=== PATIENT | male | born 1960 | race Caucasian/White ===

== ENCOUNTER 2019-02-13 21:06 | Emergency (ER) | payer MEDICAID, SELFPAY ==
[2019-02-13 21:09] VITALS: BP 151/78; PULSE 79; RESP 18; TEMP 37; O2SAT 95
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
[2019-02-13 22:11] LABS: Abs Immature Grans 0.03 k/cumm (0.0-0.09); Absolute Basophil Count 0.01 k/cumm (0.0-0.2); Basophils % 0.1; HCT 43.3 % (40.0-50.0); HGB 14.5 g/dL (13.5-17.5); Immature Grans % 0.3; Lymphocytes % 13.5; Mean Corp. HGB Concentration 33.5 g/dL (32.0-36.0); Mean Corpuscular Hemoglobin 29.4 pg (27.0-33.0); Mean Corpuscular Volume 87.8 fL (80-95); Monocytes % 7.6; Neutrophils % 78.5; Platelet Count 260 x1000/uL (130-400); RBC 4.93 m/cumm (4.50-6.00); RBC Distribution Width 12.9 % (11.8-14.1); White Blood Cell Count 11.82 k/cumm (4.4-10.8)
[2019-02-13] MEDS: Lactated Ringers 1,000 ML 250 ML IV (22:12)
[2019-02-13 22:15] LABS: Absolute Neutrophil Count 9.28 k/cumm (1.2-6.7)
[2019-02-13 22:28] LABS: Bilirubin Negative (Negative); Blood Trace-intact (Negative); Clarity Clear (Clear); Glucose Negative (Negative); Ketones Trace mg/dL (Negative); Leukocyte Esterase Negative (Negative); Nitrite Negative (Negative); Specific Gravity 1.025 (1.005-1.025); Urobilinogen 0.2 EU/dL (Up TO 0.2)
[2019-02-13 22:32] LABS: ALT 20 U/L (12-78); AST 24 U/L (15-37); Albumin 3.8 g/dL (3.4-5.0); Alkaline Phosphatase 74 U/L (46-116); Anion Gap 9.4 mmol/L (3-11); BUN 19 mg/dL (7-18); Bilirubin, Total 0.3 mg/dL (0.2-1.0); CO2 24.6 mmol/L (21.0-32.0); Calcium 9.4 mg/dL (8.5-10.1); Chloride 107 mmol/L (98-107); Glucose 119 mg/dL (70-100); Lipase 194 U/L (73-393); Potassium 3.6 mmol/L (3.5-5.1); Sodium 141 mmol/L (136-145); Total Protein 6.8 g/dL (6.4-8.2)
[2019-02-13 22:32] LABS: Bacteria Negative HPF (Negative); C & S Indicated? No; Casts Negative LPF (Negative); Crystals Rare Uric Acid HPF (Negative); Epithelial Cells Negative HPF (Negative); Mucus Negative (Negative); Other Cells Negative (Negative); RBC Negative (0-2)
--- NOTE | 2019-02-13 22:54 | DI.RAD_ITS ---
SYMPTOM/DIAGNOSIS: TRAUMA RIGHT SHOULDER: There is a fracture at the anterior inferior aspect of the glenoid. There is separation of a few mm. There is also a declivity in the lateral aspect of the humeral head which could represent a Hill Sachs lesion. The humeral head appears normally positioned. There are degenerative changes of the A-C joint which is not widened. No pneumothorax or rib fracture is seen. IMPRESSION: Large Bankart lesion of the anterior inferior glenoid. 

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
[2019-02-13 23:09] VITALS: BP 132/80; PULSE 80; RESP 16; O2SAT 95
[2019-02-13] MEDS: Omnipaque 350 MG/ML 100 ML BTL IJ (23:10)
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
[2019-02-13] MEDS: Ketorolac 15 MG/ML VIAL IVP (23:44)
[2019-02-14 00:02] VITALS: BP 146/91; PULSE 77; RESP 18; O2SAT 94
== END 2019-02-14 00:15 | disposition home or self-care (01) ==
PROVIDERS: Emergency Provider Emergency Medicine; PCP Internal Medicine
DX: S41.141A Puncture wound with foreign body of right upper arm, initial encounter (principal); S20.412A Abrasion of left back wall of thorax, initial encounter; S20.212A Contusion of left front wall of thorax, initial encounter; S80.812A Abrasion, left lower leg, initial encounter; V84.5XXA Driver of special agricultural vehicle injured in nontraffic accident, initial encounter; Y92.79 Other farm location as the place of occurrence of the external cause
CPT/HCPCS: 36415; 74177; 80053; 83690; 96361; 96374; 99285; 71260; 73030; 81003; 81015; 85025; J1885; J3490

== ENCOUNTER 2019-02-20 00:59 | Outpatient (CLI) | payer MEDICAID, SELFPAY ==
--- NOTE | 2019-02-20 14:42 | DI.MRI_ITS ---
SYMPTOMS/DIAGNOSIS: TRAUMATIC DISLOCATION, DISPLACED FRACTURE, GLENOID CAVITY OF SCAPULA, RIGHT SHOULDER, S42.141A, M25.311, EVALUATE FOR ROTATOR CUFF INVOLVEMENT RIGHT SHOULDER MRI: MRI examination of the shoulder was performed according to the usual protocol. There is an osteochondral fracture of the anterior inferior aspect of the glenoid with displacement of roughly 8 mm. There is also a nondisplaced fracture of the greater tuberosity of the humerus adjacent to infraspinatus and supraspinatus tendon attachments. No discrete rotator cuff tear seen. Mildly abnormal signal noted in the distal supraspinatus and subscapularis tendons consistent with tendinosis or direct trauma. Subscapularis tendon appears intact. There is a large joint effusion. Biceps tendon appears normally positioned. CONCLUSION: Bony Bankart lesion and nondisplaced greater tuberosity fracture of the humerus. No evidence of acute rotator cuff tear.
== END 2019-02-20 01:19 ==
PROVIDERS: PCP Internal Medicine; Visit Provider Student in an Organized Health Care Education/Training Program
DX: M25.311 Other instability, right shoulder (principal); S42.251A Displaced fracture of greater tuberosity of right humerus, initial encounter for closed fracture; M75.81 Other shoulder lesions, right shoulder
CPT/HCPCS: 73221

== ENCOUNTER 2019-02-22 10:43 | Day surgery (SDC) | payer MEDICAID, SELFPAY ==
[2019-02-22] VITALS (7 sets, daily range): BP systolic 95–147; BP diastolic 58–88; PULSE 63–69; RESP 14–19; TEMP 36.2–36.6; O2SAT 94–98
[2019-02-22] MEDS: Lactated Ringers 1,000 ML 80 ML IV (11:18)
--- NOTE | 2019-02-22 11:35 | DI.RAD_ITS ---
SYMPTOM/DIAGNOSIS: DISPLACED FX GLENOID CAVITY RT SCAPULA C ARM RIGHT SHOULDER: Fluoroscopy Time: 11.6 seconds Fluoroscopy was utilized by Dr. Persaud during evaluation of the right scapular fracture. Please refer to the procedure report for complete details.
[2019-02-22] MEDS: Bupivacaine LIPOSOME/PF 133 MG/10 ML VIAL IJ (11:57)
[2019-02-22] MEDS: Bupivacaine 0.5% Pres-Free 30 ML VIAL (11:57)
[2019-02-22] MEDS: ceFAZolin 2 GM/50 ML BAG IVPB (12:02)
--- NOTE | 2019-02-22 16:14 | PDOC.DSDIS_ITS ---
Discharge Plan Disposition Patient Disposition: HOME Condition: Good Discharge Details Reason For Visit: R Glenoid Fracture and RTC Tear Attending Provider: Owen Persaud Primary Care Provider: Graham Arita Home Meds and New Rx's Prescriptions: New acetaminophen 500 mg tablet 1,000 mg PO Q8H PRN (Reason: pain) Qty: 90 RF: 3 ibuprofen 600 mg tablet 600 mg PO TID PRNQty: 90 RF: 3 oxycodone 5 mg tablet 5 mg PO Q4H Qty: 12 RF: 0 Continued aspirin [Aspir-81] 81 MG tablet,delayed release (DR/EC) 81 mg PO DAILY RF: 0 ibuprofen 600 mg Tablet 600 mg PO PRN PRNRF: 0 Discharge Instructions Additional Instructions: If you have any questions or issues, you may reach out to Dr. Persaud at [phone] Stand Alone Forms: Anes.Nerve Block Instructions, Hung Montilla w/RCR, DSU Post op Instructions, Aaron Forte (DSU) Referrals: Owen Persaud MD [ [facility] STAFF PHYSICIAN] - Equipment/Supplies: Bolster Pillow and Sling Activity:: Stay in Sling Remove Dressings/Wound Care:: 72 hours Shower/Bathe:: 72 hours Discharge Orders Discharge Orders: Discharge Order (Routine); Ordered 02/22/19 Ordered By: Owen Persaud DS: Diagnosis Discharge Diagnosis (1) Instability of right shoulder joint: Status: Acute (2) Displaced fracture of glenoid cavity of right scapula: Status: Acute (3) Right rotator cuff tear: Status: Acute
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
== END 2019-02-22 18:19 | disposition home or self-care (01) ==
PROVIDERS: PCP Internal Medicine; Visit Provider Student in an Organized Health Care Education/Training Program
PROC: (CPT 29827; principal; 2019-02-22 12:00)
PROC: (CPT 29806; 2019-02-22 12:00)
DX: S42.141A Displaced fracture of glenoid cavity of scapula, right shoulder, initial encounter for closed fracture (principal); S46.011A Strain of muscle(s) and tendon(s) of the rotator cuff of right shoulder, initial encounter; M25.311 Other instability, right shoulder; G89.18 Other acute postprocedural pain; V84.5XXA Driver of special agricultural vehicle injured in nontraffic accident, initial encounter
CPT/HCPCS: 29806; 29827; 29823; 76942; 73030; J0690; L3670

== ENCOUNTER 2019-03-06 10:49 | Outpatient (CLI) | payer MEDICAID, SELFPAY ==
--- NOTE | 2019-03-06 09:10 | DI.RAD_ITS ---
SYMPTOM/DIAGNOSIS: 1ST POST OP GLENOID FX RIGHT SHOULDER: Three views. Comparison 02/13/19 There is again seen a comminuted fracture of the anterior inferior glenoid. There has been slight displacement of the fracture fragments compared to 02/13/19 No new fractures or dislocations are present. There are tiny calcifications adjacent to the greater tuberosity which appears stable and may reflect calcific tendinitis.
== END 2019-03-06 11:09 ==
PROVIDERS: Visit Provider Student in an Organized Health Care Education/Training Program
DX: S42.141A Displaced fracture of glenoid cavity of scapula, right shoulder, initial encounter for closed fracture (principal)
CPT/HCPCS: 73030

== ENCOUNTER 2019-04-03 14:44 | Outpatient (CLI) | payer MEDICAID, SELFPAY ==
--- NOTE | 2019-04-03 14:13 | DI.RAD_ITS ---
SYMPTOMS/DIAGNOSIS: F/U FX RIGHT SHOULDER: Four views were obtained. Previously noted glenoid fracture is again noted. No gross interval change in alignment of the fracture fragments in comparison with examination of March 06.
== END 2019-04-03 15:04 ==
PROVIDERS: PCP Internal Medicine; Visit Provider Student in an Organized Health Care Education/Training Program
DX: S42.141D Displaced fracture of glenoid cavity of scapula, right shoulder, subsequent encounter for fracture with routine healing (principal)
CPT/HCPCS: 73030

== ENCOUNTER 2019-09-30 19:19 | Outpatient (REF) | payer MEDICAID, SELFPAY ==
[2019-09-30 20:58] LABS: Calculated LDL 173 mg/dL (<100); Cholesterol 264 mg/dL (<200); HDL Cholesterol 38 mg/dL (40-60); Triglyceride 269 mg/dL (<150)
== END 2019-09-30 19:39 ==
LOC: NCHCN 19:19
PROVIDERS: PCP Internal Medicine; Visit Provider Internal Medicine
DX: E78.5 Hyperlipidemia, unspecified (principal); Z00.00 Encounter for general adult medical examination without abnormal findings
CPT/HCPCS: 80061

== ENCOUNTER 2020-02-04 08:02 | Outpatient (CLI) | payer MEDICAID, SELFPAY ==
[2020-02-07 00:17] LABS: SARS-CoV-2 RNA Undetected (Undetected); SARS-CoV-2 Specimen Source Nasopharynx
== END 2020-02-04 08:22 ==
PROVIDERS: PCP Internal Medicine; Visit Provider Internal Medicine
DX: Z11.59 Encounter for screening for other viral diseases (principal)
CPT/HCPCS: U0003

== ENCOUNTER 2020-05-19 18:18 | Outpatient (REF) | payer MEDICAID, SELFPAY ==
[2020-05-24 11:43] LABS: Patient Race White; SARS-CoV-2 RNA Undetected (Undetected); SARS-CoV-2 Specimen Source Nasal
== END 2020-05-19 18:38 ==
LOC: NCHCN 18:18
PROVIDERS: PCP Internal Medicine; Visit Provider Internal Medicine
DX: Z20.828 Contact with and (suspected) exposure to other viral communicable diseases (principal)
CPT/HCPCS: U0003

== ENCOUNTER 2021-01-22 16:43 | Outpatient (REF) | payer MEDICAID, SELFPAY ==
[2021-01-25 09:36] LABS: PSA, Screening 0.3 ng/mL (0.0-4.5)
== END 2021-01-22 16:44 | disposition home or self-care (01) ==
LOC: NCHCN 16:43
PROVIDERS: PCP Internal Medicine; Visit Provider Internal Medicine
DX: Z12.5 Encounter for screening for malignant neoplasm of prostate (principal)
CPT/HCPCS: 84153

== ENCOUNTER → 2022-02-16 01:26 | Outpatient (CLI) | payer MEDICAID, SELFPAY ==
--- NOTE | 2022-02-16 | DI.RAD_ITS ---
Exam(s) XR CHEST 2V PA LATERAL EXAM: XR CHEST 2V PA LATERAL CLINICAL HISTORY: WHEEZING, R06.2 TECHNIQUE: 2D digital imaging was performed. COMPARISON: CT CT CHEST/ABD/PEL W from 02/13/2019 FINDINGS: MEDIASTINUM: Normal. HEART: Normal. PULMONARY VASCULATURE: Normal. LUNGS: Clear. PLEURAL SPACE: No pleural effusion or pneumothorax. BONE:Unremarkable for age. IMPRESSION: No acute abnormality. DATA REPOSITORY: RADIATION DOSE DELIVERED:
== END ==
PROVIDERS: PCP Internal Medicine; Visit Provider Internal Medicine
DX: R06.2 Wheezing (principal)
CPT/HCPCS: 71046

== ENCOUNTER 2022-04-07 18:15 | Outpatient (REF) | payer MEDICAID, SELFPAY ==
[2022-04-09 22:35] LABS: HSV 1 DNA Result Negative (Negative); HSV 2 DNA Result Negative (Negative)
== END 2022-04-07 18:16 | disposition home or self-care (01) ==
LOC: NCHCN 18:15
PROVIDERS: PCP Internal Medicine; Visit Provider Nurse Practitioner Family
DX: R21 Rash and other nonspecific skin eruption (principal)
CPT/HCPCS: 87529

== ENCOUNTER 2022-04-19 17:37 | Outpatient (REF) | payer MEDICAID, SELFPAY ==
[2022-04-20 11:30] LABS: HSV Type 1 Ab, IgG Negative (Negative); HSV Type 2 Ab, IgG Negative (Negative)
== END 2022-04-19 17:38 | disposition home or self-care (01) ==
LOC: NCHCN 17:37
PROVIDERS: PCP Internal Medicine; Visit Provider Nurse Practitioner Family
DX: R21 Rash and other nonspecific skin eruption (principal)
CPT/HCPCS: 86695; 86696

== ENCOUNTER 2022-09-17 15:11 | Emergency (ER) | payer MEDICAID, SELFPAY ==
[2022-09-17] VITALS (19 sets, daily range): BP systolic 113–132; BP diastolic 71–98; PULSE 71–111; RESP 10–22; TEMP 37; O2SAT 99
--- NOTE | 2022-09-17 15:15 | DI.RAD_ITS ---
Exam(s) XR PORTABLE CHEST AP EXAM: XR PORTABLE CHEST AP CLINICAL HISTORY: dyspnea TECHNIQUE: 2D digital imaging was performed of the chest. One image was obtained. An AP view was ob tained. COMPARISON: CR XR CHEST 2V PA LATERAL from 02/16/2022 FINDINGS: MEDIASTINUM: Normal. HEART: Normal. PULMONARY VASCULATURE: Normal. LUNGS: Clear. PLEURAL SPACE: No pleural effusion or pneumothorax. BONE:Within normal limits for the patient's age. OTHER FINDINGS:Normal. IMPRESSION: No acute pulmonary findings. DATA REPOSITORY: RADIATION DOSE DELIVERED:
--- NOTE | 2022-09-17 15:15 | RT.EKG_ITS ---
APPROVED REPORT Exam: Resting ECG Reason for Exam: rapid afib Patient Location: E HR:102 bpm ECG Measurements Heart Rate 102 AXIS ND [id number] P [id number] QRSd 96 QRS 2 QT 354 T 26 QTc 462 Conclusion Atrial fibrillation...V-rate 78-135, irreg A-activity
--- NOTE | 2022-09-17 15:27 | ED.GENADUL_ITS ---
Discharge Plan Disposition Patient Disposition: Home Condition: Stable Discharge Details Clinical Impression: Atrial fibrillation Primary Care Provider: Graham Arita ED Provider: Krishna Salcedo Home Meds and New Rx's Prescriptions: New Kapspargo Sprinkle 50 mg capsule,sprinkle,ER 24hr 50 mg PO DAILY Qty: 10 0RF Continued aspirin [Aspir-81] 81 MG tablet,delayed release (DR/EC) 81 mg PO DAILY ibuprofen 600 mg Tablet 600 mg PO PRN PRN acetaminophen 500 mg tablet 1,000 mg PO Q8H PRN (Reason: pain) Qty: 90 3RF ibuprofen 600 mg tablet 600 mg PO TID PRNQty: 90 3RF Discharge Instructions Instructions: A-fib (Atrial Fibrillation) (ED) Additional Instructions: Your blood work and xray did not show concerning findings and your heart rate was not elevated while here follow up with your primary care provider within 1 week if you feel more ill, have chest pain or feel your heart rate at rest is consistently over 110 return to the emergency department Medical Decision Making 61 yo male who has a history of paroxysmal afib on aspirin and no other medications, comes in with feeling his heart beating irregularly today and feeling short of breath with exertion. Denies any fevers, chills, chest pain, n/v. States he felt well all day yesterday and had no symptoms. He arrives stable, is in afib with rates ranging from 90-110. Clear lungs, no murmurs, no leg swelling, no calf tenderness, no jvd. Suspect his symptoms are due to his afib, will evaluate for nstemi with troponin, obtain cbc and cmp, and give one dose of IV metoprolol and reassess. He has no hypoxia, no pleuritic chest pain and no evidence of dvt on exam so doubt PE pt stable, HR in the 80's, 100% [id number], labs unremarkable and symptoms have been present for over 3 hours so do not feel delta troponin indicated. Discussed with pt, he has a [id number] of 0 so doesn't require anticoagulation. Will start him on metoprolol until he can see his pcp for reassessment. Return precautions given Differential Diagnosis Differential Diagnosis: afib, electrolyte abnormality Medical Records Medical records reviewed: Yes I reviewed the patient's medical records. ECG Data Attestation: I personally reviewed and interpreted this ECG (s) as follows: Prior ECG tracings: not available for review Interpretation: afib, rate of 102, qtc 462, no acute ischemic findings HPI General Mode of arrival: ambulatory . Date/Time Provider Initiated Documentation: 09/17/22 15:12 . Limitations to Documentation: no limitations . Information obtained by: patient . History of Present Illness 61 year old M presents to the emergency department with the chief complaint of shortness of breath, described as moderate, Patient started experiencing this day(s) (1) and it has been constant. No relieving factors improve symptom(s), No exacerbating factors reported . Patient notes other (lightheaded). Patient did receive the following treatments prior to arrival, none Related Data Home Medications Medication Instructions Recorded Confirmed aspirin 81 mg tablet,delayed 81 mg PO DAILY 01/10/14 07/08/19 release (Aspir-) acetaminophen 500 mg tablet 1,000 mg PO Q8H PRN pain #90 tabs 02/22/19 07/08/19 ibuprofen 600 mg tablet 600 mg PO PRN PRN 02/22/19 07/08/19 ibuprofen 600 mg tablet 600 mg PO TID PRN #90 tabs 02/22/19 07/08/19 metoprolol succinate 50 mg capsule 50 mg PO DAILY #10 caps 09/17/22 sprinkle, ext. release 24 hr (Kapspargo Sprinkle) Previous Rx's Medication Instructions Recorded acetaminophen 500 mg tablet 1,000 mg PO Q8H PRN pain #90 tabs 02/22/19 ibuprofen 600 mg tablet 600 mg PO TID PRN #90 tabs 02/22/19 metoprolol succinate 50 mg capsule 50 mg PO DAILY #10 caps 09/17/22 sprinkle, ext. release 24 hr (Kapspargo Sprinkle) Allergies Allergy/AdvReac Type Severity Reaction Status Date / Time No Known Allergies Allergy Unverified 07/08/19 08:18 General Stated Complaint: RespSymp YUDELKA: 3 Review of Systems All systems reviewed & are unremarkable except as noted in HPI and below Constitutional Constitutional: Denies chills, Denies fever(s) and Denies weakness Cardiovascular Cardiovascular: Denies chest pain Respiratory Respiratory: Denies cough Gastrointestinal Gastrointestinal: Denies abdominal pain, Denies nausea and Denies vomiting Musculoskeletal Musculoskeletal: Denies joint swelling Integumentary/Breasts Skin/Breast: Denies rash Neurologic Neurologic: Denies weakness PFSH All Active Problems (Updated 09/17/22 @ 16:53 by Krishna Salcedo MD) Atrial fibrillation (Chronic) Sleep apnea (Acute) Screening for colon cancer (Acute) Instability of right shoulder joint (Acute) S/P bony Bankart stabilization procedure on 02/22/2019. 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 ARITA FOR HEART WORK UP Skin nodule Ulnar nerve entrapment syndrome Surgical History (Updated 06/14/22 @ 15:15 by Analilia Andre RN) H/O knee surgery History of colonoscopy (~2011) Social History Smoking/Tobacco Use Status: Never Smoking risk assessment performed?: Yes Alcohol Intake: current Alcohol Intake frequency: 0-2 drinks per day Alcohol type: beer Drug use: Rarely Substance use type: marijuana Current gender identity: male Do you feel safe at home: Yes Do you feel safe in your relationship?: Yes Additional Social history: pt is not alone; interacts well with significant other. Exam Const General: no acute distress Orientation: alert HENMT Head: normal to inspection Ears: external ears normal General nose exam: external nose normal Mouth: moist mucous membranes Eyes General: appearance normal, both eyes and all related structures Neck Neck: normal visual inspection Resp Effort & Inspection: normal respiratory effort and able to speak in complete sentences Auscultation: clear to auscultation bilaterally Cardio Jugular venous pressure: no JVD Heart Sounds: no murmurs Skin General skin exam: no rashes or lesions noted Neuro General: patient alert and patient oriented x3 Extrem General: normal to inspection Psych Mental Status: mental status grossly normal Course Vital Signs Vital signs: Vital Signs Temperature 37 C 09/17/22 15:17 Pulse 84 09/17/22 15:17 Respiratory Rate 18 09/17/22 15:17 Blood Pressure 126/81 09/17/22 15:17 Pulse Oximetry 99 09/17/22 15:17 Temperature 37 C 09/17/22 15:17 Temperature Source Temporal Artery Scan 09/17/22 15:17 Pulse 84 09/17/22 15:17 Respiratory Rate 18 09/17/22 15:17 Blood Pressure 126/81 09/17/22 15:17 Blood Pressure Position Sitting 09/17/22 15:17 Pulse Oximetry 99 09/17/22 15:17 Oxygen Delivery Method Room Air 09/17/22 15:17 Oxygen Flow Rate 0 09/17/22 15:17
[2022-09-17 15:42] LABS: Abs Immature Grans 0.02 10^3/uL (0.0-0.06); Absolute Basophil Count 0.03 10^3/uL (0.0-0.2); Absolute Eosinophil Count 0.11 10^3/uL (0.0-0.7); Absolute Lymphocyte Count 2.16 10^3/uL (1.2-3.4); Absolute Monocyte Count 0.55 10^3/uL (0.1-0.8); Absolute Neutrophil Count 4.72 10^3/uL (1.2-6.7); Basophils % 0.4; Eosinophils % 1.4; HCT 48.2 % (40.0-50.0); HGB 15.7 g/dL (13.5-17.5); Immature Grans % 0.3; Lymphocytes % 28.5; MCH 29.1 pg (27.0-33.0); MCHC 32.6 % (32.0-36.0); MCV 89 fL (80-95); MPV 9.4 fL (8.0-11.0); Monocytes % 7.2; Neutrophils % 62.2; Platelet Count 262 10^3/uL (130-400); RDW 12.4 % (11.8-14.1); RDW-SD 40.9 fL; WBC 7.59 10^3/uL (4.4-10.8)
[2022-09-17] MEDS: Metoprolol 5 MG/5 ML VIAL IVP (15:43)
[2022-09-17] MEDS: Normal Saline 1,000 ML 1000 ML IV (15:43)
[2022-09-17 15:56] LABS: PTT Activated 25.5 sec (21.0-27.5); Prothrombin Time 10.1 sec (9.3-11.0)
[2022-09-17 16:00] LABS: ALT 26 U/L (16-63); AST 21 U/L (15-37); Albumin 3.7 g/dL (3.4-5.0); Alkaline Phosphatase 83 U/L (46-116); Anion Gap 6.9 mmol/L (3-11); BUN 17 mg/dL (7-18); Bilirubin, Total 0.4 mg/dL (0.2-1.0); CO2 30.1 mmol/L (21.0-32.0); CREATININE 0.9 mg/dL (0.70-1.30); Calcium 9.2 mg/dL (8.5-10.1); Chloride 105 mmol/L (98-107); Estimated GFR 95.97 (mL/min/1.73m2); Glucose 102 mg/dL (74-106); Potassium 3.6 mmol/L (3.5-5.1); Sodium 142 mmol/L (136-145); Total Protein 6.8 g/dL (6.4-8.2); Troponin I < 50 ng/L (<or=60)
--- NOTE | 2022-09-17 16:28 | DI.VRAD_ITS ---
PROCEDURE INFORMATION: Exam: XR Chest Exam date and time: 09/17/2022 3:44 PM Age: 61 years old Clinical indication: Shortness of breath TECHNIQUE: Imaging protocol: Radiologic exam of the chest. Views: 1 view. COMPARISON: CR XR CHEST 2V PA LATERAL 02/16/2022 7:43 AM FINDINGS: Lungs: Unremarkable. No consolidation. Pleural spaces: Unremarkable. No pleural effusion. No pneumothorax. Heart/Mediastinum: Unremarkable. No cardiomegaly. Bones/joints: Unremarkable. IMPRESSION: No acute findings. Dictated and Authenticated by: Ursula Arellano MD. Ordering:ALEXANDREA Keller MD
== END 2022-09-17 17:15 | disposition home or self-care (01) ==
PROVIDERS: Emergency Provider Emergency Medicine; PCP Internal Medicine
DX: I48.0 Paroxysmal atrial fibrillation (principal)
CPT/HCPCS: 80053; 93005; 96361; 96374; 99284; 71045; 83735; 84484; 85025; 85610; 85730; 93010; 99285

== ENCOUNTER 2022-09-26 15:26 | Outpatient (REF) | payer MEDICAID, SELFPAY ==
[2022-09-26 15:14] LABS: Calculated LDL 194 mg/dL (<100); Cholesterol 269 mg/dL (<200); HDL Cholesterol 44 mg/dL (40-60); TSH 2.06 uIU/mL (0.36-3.74); Triglyceride 159 mg/dL (<150)
== END 2022-09-26 15:27 | disposition home or self-care (01) ==
LOC: NCHCN 15:26
PROVIDERS: PCP Internal Medicine; Visit Provider Internal Medicine
DX: I48.0 Paroxysmal atrial fibrillation (principal); E78.5 Hyperlipidemia, unspecified
CPT/HCPCS: 80061; 84443

== ENCOUNTER 2022-12-02 08:57 | Outpatient (CLI) | payer MEDICAID, SELFPAY | END 2022-12-02 08:58 | disposition home or self-care (01) | PROVIDERS: PCP Internal Medicine; Visit Provider Internal Medicine | DX: I48.91 Unspecified atrial fibrillation (principal) | CPT/HCPCS: 93246 ==

== ENCOUNTER 2022-12-20 01:23 | Outpatient (CLI) | payer MEDICAID, SELFPAY ==
--- NOTE | 2022-12-20 15:55 | DI.US_ITS ---
APPROVED REPORT EXAM: Comprehensive 2D, Doppler, and color-flow Echocardiogram Patient Location: Out-Patient [place] [employer] Operator: Aye Siu RDCS (AE) Indications: paroxysmal afib Other Information Study Quality: Adequate Conclusion Normal left ventricular wall thickness and chamber size. Ejection fraction is 60%. Wall motion is n ormal Normal right ventricular size and systolic function The left atrium is mildly dilated. The right atrium is moderately dilated Aortic valve is trileaflet without stenosis or regurgitation Normal mitral valve with mild regurgitation Normal tricuspid valve with moderate regurgitation. Estimated right ventricular systolic pressure is 23 mmHg Wall motion Left Ventricle The left ventricle is normal size. The left ventricular systolic function is normal. The left ventric ular ejection fraction is within the normal range. There is normal left ventricular wall thickness. T here is normal LV segmental wall motion. There is no ventricular septal defect visualized. LVEF is 60 %. Right Ventricle The right ventricle is normal size. The right ventricular systolic function is normal. Atria Left atrium is mildly dilated. Right atrium is moderately dilated. Prominent Eustachian valve is note d in the right atrium. The interatrial septum is intact with no evidence for an atrial septal defect. Atrial septal aneurysm is present. Aortic Valve The aortic valve is normal in structure. Aortic valve is trileaflet. There is no aortic valvular sten osis. No aortic regurgitation is present. Mitral Valve The mitral valve is normal in structure. No evidence of mitral valve stenosis. Mild mitral regurgitat ion. Tricuspid Valve The tricuspid valve is normal in structure. There is no tricuspid valve stenosis. Moderate tricuspid regurgitation. The RVSP is 23.5 mmHg. Pulmonic Valve The pulmonary valve is normal in structure. There is no pulmonic valvular stenosis. Trace pulmonic re gurgitation. Great Vessels The aortic root is normal in size. Ascending aorta is normal in caliber. Aortic arch is normal in claude iber. IVC is normal in size and collapses >50% with inspiration. Pericardium There is no pericardial effusion. 2D Dimensions IVSD d PLAX 0.82 cm M: 0.6-1.2 LV Vol A2C d MOD 157.6 mL LVPW d PLAX 0.84 cm M: 0.6 - 1.2 LV Vol A4C d MOD 153.2 mL LVID d PLAX 5.21 cm M: 4.2 - 5.8 LA vol/ BSA A2C s A-L 36.6 mL/m2 LVDs 3.40 cm M: 2.5 - 4.0 LA vol/ BSA A4C s A-L 38.5 mL/m2 Ao Root d 3.17 cm M: 3.1 - 3.7 LA Vol/ BSA Biplane s A-L 39.0 mL/m2 RA Area A4C 21.66 cm2 LA Area A4C s MOD 23.49 cm2 RA Vol/ BSA A4C s A-L 38.0 mL/m2 LA Area A2C s MOD 22.08 cm2 Ao Asc Diam d 3.49 cm M: 2.6 - 3.4 LV EF A4C MOD 60.8 % LV EF Teichholz 62.6 % LV EF A2C MOD 60.2 % LVEF (Hall's) 60.72 % M: 52 - 72 LV EF Biplane MOD 60.7 % LV Volume 117.85 mL M: 62 - 150 SV 95.02 mL LV Volume Index 59.52 mL/m2 M: 34 - 74 SV Index 48.11 mL/m2 LV Vol Biplane MOD 156.5 mL FS 34.05 % M-Mode TAPSE 2.08 cm (M/F) >1.7 LV Diastology MV E' medial 0.055 (>0.07 m/s) E/A Ratio 0.7 LV E/e MED 8.35 (<14) MV E Vmax 0.46 (0.4-1.3 m/s) MV E' lateral 0.066 (>0.1 m/s) MV A Vmax 0.65 (0.4-1.3 m/s) LV E/e LAT 6.85 (<14) MV E/A Ratio 0.68 MV E/E' medial 8.35 MV E/E' lateral 6.88 Aortic Valve LVOT Area 3.36 cm2 AoV Area Vmax 2.59 cm2 LVOT Vmax 0.97 m/s AoV Area/ BSA (Vmax) 1.31 cm2/m2 LVOT Mean Al. 0.62 m/s SARAH Mean Al. 2.28 cm2 LVOT Peak Grad 3.8 mmHg SARAH Mean Al. Index 1.16 cm2/m2 LVOT Mean Grad 1.8 mmHg LVOT VTI 0.214 m LVOT Diam s 2.05 cm AoV Vmax 1.27 m/s Velocity Ratio 0.76 AoV Mean Al. 0.91 m/s AoV Peak Grad 6.4 mmHg LVOT SV 71.83 mL AoV Mean Grad 3.6 mmHg AoV VTI 0.273 m AoV Area VTI 2.63 cm2 AoV Area/ BSA (VTI) 1.33 cm/m2 Mitral Valve MV DT 294 (160-240 msec) MV PHT 85 msec MV Area PHT 2.58 cm2 Pulmonary Valve PV Vmax 0.96 (0.5-1.5 m/s) RVOT Peak Gr. 1.10 mmHg PV Peak Grad 3.7 mmHg RVOT Mean Gr. 0.50 mmHg PV Mean Grad 1.7 mmHg RVOT VTI 0.133 m PV VTI 0.192 m RVOT Vmax 0.52 m/s Tricuspid Valve TR Peak Grad 20.4 mmHg TR Vmax 2.26 m/s RA Pressure 3.00 mmHg RVSP (TR) 23.5 mmHg
== END 2022-12-20 01:43 ==
LOC: DI 01:23
PROVIDERS: PCP Internal Medicine; Visit Provider Internal Medicine
DX: I48.0 Paroxysmal atrial fibrillation (principal)
CPT/HCPCS: 93306

== ENCOUNTER 2023-01-02 08:18 | Outpatient (CLI) | payer MEDICAID, SELFPAY ==
--- NOTE | 2023-01-02 08:45 | W.CARDEVENT ---
Date of service: 01/02/23 Time of Service: 08:45 Cardiac Event Recorder Referring Provider:: Graham Arita Indications:: Paroxysmal atrial fibrillation Cardiac Event Note: This is a 14-day cardiac event recorder Rhythm throughout was sinus with an average heart rate of 66. Minimum was 47, maximum 127 There were no supraventricular dysrhythmias. There was no atrial fibrillation There were occasional ventricular ectopic beats Patient symptoms were reported which corresponded to sinus rhythm
== END 2023-01-02 08:19 | disposition home or self-care (01) ==
LOC: CARDOPNVT 08:18
PROVIDERS: PCP Internal Medicine; Visit Provider Internal Medicine Cardiovascular Disease
DX: I48.0 Paroxysmal atrial fibrillation (principal); I49.3 Ventricular premature depolarization

== ENCOUNTER 2023-02-13 16:34 | Outpatient (REF) | payer MEDICAID, SELFPAY ==
[2023-02-13 23:29] LABS: Calculated LDL 107 mg/dL (<100); Cholesterol 179 mg/dL (<200); HDL Cholesterol 45 mg/dL (40-60); Triglyceride 136 mg/dL (<150)
== END 2023-02-13 16:35 | disposition home or self-care (01) ==
LOC: NCHCN 16:34
PROVIDERS: PCP Internal Medicine; Visit Provider Internal Medicine
DX: E78.5 Hyperlipidemia, unspecified (principal)
CPT/HCPCS: 80061

== ENCOUNTER 2023-09-12 16:12 | Outpatient (REF) | payer MEDICAID, SELFPAY ==
[2023-09-12 17:22] LABS: HCT 45.9 % (40.0-50.0); HGB 14.9 g/dL (13.5-17.5); MCH 28.8 pg (27.0-33.0); MCHC 32.5 % (32.0-36.0); MCV 89 fL (80-95); MPV 10.2 fL (8.0-11.0); Platelet Count 189 10^3/uL (130-400); RBC 5.17 10^6/uL (4.36-5.78); RDW 12.5 % (11.8-14.1); RDW-SD 40.9 fL; WBC 6.54 10^3/uL (4.4-10.8)
[2023-09-12 17:33] LABS: ALT 34 U/L (16-63); AST 17 U/L (15-37); Albumin 3.6 g/dL (3.4-5.0); Alkaline Phosphatase 68 U/L (46-116); Anion Gap 9.8 mmol/L (3-11); BUN 17 mg/dL (7-18); Bilirubin, Total 0.4 mg/dL (0.2-1.0); CO2 27.2 mmol/L (21.0-32.0); CREATININE 0.9 mg/dL (0.70-1.30); Calcium 9.1 mg/dL (8.5-10.1); Chloride 106 mmol/L (98-107); Estimated GFR 95.37 (mL/min/1.73m2); Glucose 99 mg/dL (74-106); Sodium 143 mmol/L (136-145); Total Protein 6.3 g/dL (6.4-8.2)
== END 2023-09-12 16:13 | disposition home or self-care (01) ==
LOC: NCHCN 16:12
PROVIDERS: PCP Internal Medicine; Visit Provider Family Medicine
DX: I48.0 Paroxysmal atrial fibrillation (principal); E78.5 Hyperlipidemia, unspecified
CPT/HCPCS: 80053; 85027

== ENCOUNTER 2023-10-16 07:00 | Day surgery (SDC) | payer SELFPAY ==
--- NOTE | 2023-10-15 18:20 | W.PM.DSUDISC ---
Date of service: 10/16/23 Time of Service: 08:36 Discharge Plan Disposition Patient Disposition: Home Condition: Good Discharge Details Reason For Visit: screening colonoscopy Attending Provider: Scott Burt Primary Care Provider: Fermin Louis Home Meds and New Rx's Prescriptions: Continued metoprolol tartrate 25 mg tablet 25 mg PO BID PRN aspirin [Aspir-81] 81 MG tablet,delayed release (DR/EC) 81 mg PO DAILY Discontinued bisacodyl [Dulcolax (bisacodyl)] 5 mg tablet,delayed release (DR/EC) 5 mg PO ONCE Qty: 4 0RF Rx Instructions: Take per colonoscopy instructions provided by ordering providers office polyethylene glycol 3350 17 gram/dose powder 17 g PO ONCE Qty: 238 0RF Rx Instructions: Take per colonoscopy instructions provided by ordering providers office Discharge Instructions Instructions: Colorectal Polyps (GEN) Additional Instructions: Jaden, we were able to complete your colonoscopy today without any issues. I did find 3 polyps. All were extremely small. I removed these completely. 2 of them looked consistent with hyperplastic polyps, the type that you had removed before. The other looked a little more consistent with a tubular adenoma. Regardless, I will send these all off for testing. Once I have the nature of the polyps exactly, then I will be in touch with recommendations for your next screening colonoscopy. 1. If tolerated, consume a soft, low fiber diet for 1-2 days. 2[address] Do not drive, drink alcohol, operate machinery, make critical decisions, or do activities that require coordination or balance for 24 hours. 3. Because air was put into your colon during the procedure, expelling air from your rectum (passing gas or farting) is normal. 4. You may not have a bowel movement for 1-3 days because of the colonoscopy prep. This is normal. 5. Go directly to the emergency room if you notice any of the following: Develop chills (warm to touch), or if you have a thermometer and your temperature is above 101 Difficulty breathing or difficultly swallowing Persistent vomiting Severe abdominal pain, other than gas cramps Severe chest pain Black, tarry stools Any bleeding ? exceeding one tablespoon 6. Call your physician if the site where your intravenous was started becomes red, swollen, painful, and warm to touch. 7. Your physician has reviewed your pre-procedure medications. Please continue to take those medications as previously ordered. You will be given specific information/education regarding any changes to your medications before leaving. Activity:: Activity as Tolerated Diet:: As Tolerated Discharge Orders Discharge Orders: Discharge Order (Routine); Ordered 10/15/23 Ordered By: Scott Burt DS: Diagnosis Discharge Diagnosis (1) Screening for colon cancer: Status: Acute Asessment and Plan: Follow-up on polyp results
--- NOTE | 2023-10-15 18:21 | COLE_ITS ---
Date of service: 10/16/23 Time of Service: 08:37 Colonoscopy Report Date of procedure: 10/16/23 Pre-op diagnosis general: screening colonoscopy Post-op diagnosis procedure note: other (Colon polyps) Procedure: colonoscopy with polypectomy Surgeon: Scott Burt Anesthesia Type: General:No Airway Estimated blood loss (mL): 5 Pathology: other (3 polyps, all around 20 cm from the anus.) Complications: None Disposition: same day Indications: Jaden is a 63 year old man who needs his next screening colonoscopy Prep: Miralax/Dulcolax Procedure Start Time: 08:12 Procedure End Time: 08:30 Retraction Time: 12 Findings: 0.25 cm polyps x 3 around 20 cm from the anus Procedure Description: After the induction of monitored anesthetic care, and with the patient in left lateral decubitus position, I began by performing an external anorectal exam.? Perineum and skin were normal, as was the anal verge.? Next, I performed a digital rectal exam.? I did not appreciate any abnormal findings.? Next, I advanced a colonoscope into the rectal vault.? I performed retroflexion.? This appeared normal.? Using insufflation, I then advanced the colonoscope beyond the rectal folds and into the sigmoid colon before advancing towards the cecum.? The scope was noted to be in the cecum by identification of the ileocecal valve and appendiceal orifice.? I then began withdrawing the colonoscope using repeated irrigation as necessary for full evaluation of the colonic mucosa. ?Once the scope was withdrawn to the level of the rectum, great care was taken to examine portions of the rectal folds.? Around 20 cm from the anal verge were 3 polyps. These were all quite small and flat. Narrowband imaging was used to assist with analysis. One of the polyps appeared a little more consistent with a tubular adenoma. All of these polyps were removed with cold forceps without any issues. Finally, the scope was withdrawn and the patient was brought to the same-day surgery recovery unit as the anesthetic wore off. ?The findings and instructions were shared with the patient prior to discharge. Maurepas Bowel Prep Maurepas Bowel Prep Right Colon: 3 Left Colon: 3 Transverse Colon: 3 Total Score: 9
[2023-10-16 07:14] VITALS: BP 137/92; PULSE 60; RESP 16; TEMP 36.6; O2SAT 98
[2023-10-16] MEDS: Lactated Ringers 1,000 ML 80 ML IV (07:34)
--- NOTE | 2023-10-16 07:37 | ANES.PREOP_ITS ---
General Info Date of Service Date Performed: 10/16/23 Height: 5 ft 9 in Weight: 86.7 kg Body Mass Index (BMI): 28.2 Surgical Procedure: Operation Date: 10/16/23 08:20 Proposed Procedure Side Surgeon rene Burt MD Meds Allergies and Home Medications Allergies Allergy/AdvReac Type Severity Reaction Status Date / Time No Known Allergies Allergy Verified 10/16/23 07:20 Home Medication Medication Instructions Recorded aspirin 81 mg tablet,delayed 81 mg PO DAILY 01/10/14 release (Aspir-) metoprolol tartrate 25 mg tablet 25 mg PO BID PRN 06/22/23 Current Visit Medications: Current Medications Generic Name Dose Route Start Last Admin Trade Name Freq PRN Reason Stop Dose Admin Hyoscyamine Sulfate 0.125 mg 10/15/23 18:23 Hyoscyamine 0.125 Mg Sl/Oral/Chew SL 11/14/23 18:22 DIRECTED PRN Ringer's Solution 1,000 mls @ 80 mls/hr 10/16/23 06:00 10/16/23 07:34 IV 11/12/23 23:59 80 mls/hr INFUSION ALFRED Administration IV Miscellaneous Supplies 1 each 10/16/23 06:00 Iv Access IV 11/12/23 23:59 DIRECTED ALFRED Ondansetron HCl 4 mg 10/15/23 18:23 Ondansetron 4 Mg/2 Ml Vial IVP 11/14/23 18:22 Q4H PRN PRN Nausea / Vomiting Sodium Chloride 0 ml 10/16/23 06:00 Normal Saline Flush 10 Ml Syr IV 11/12/23 23:59 PRN PRN Sodium Chloride 0 ml 10/16/23 06:00 Normal Saline 10 Ml Vial IJ 11/12/23 23:59 DIRECTED PRN Sterile Water 0 ml 10/16/23 06:00 Water,Injection,Sterile 10 Ml Vial IJ 11/12/23 23:59 DIRECTED PRN PFSH Active Problems Active Problems: Problem Status Onset Code Sleep apnea G47.30 Screening for colon cancer Z12.11 Right rotator cuff tear M75.101 Hill Sachs deformity, 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 OVIEDO FOR HEART WORK UP Actinic keratoses Knee pain, bilateral Skin nodule Paresthesia of both hands Surgical History Surgical History (Updated 10/16/23 @ 07:24 by Hay Martinez) H/O arthroscopy of shoulder Right shoulder. History of colonoscopy (~2011) H/O knee surgery Pt. denies Tobacco Smoking/Tobacco Use Status: Never Alcohol Alcohol Intake: current Alcohol intake frequency: a few times a month Alcohol type: beer Substance Use Substance use: Rarely Substance use type: marijuana Vital Signs and Lab Results Vital Signs Most Recent Vital Signs in EMR: Most Recent Vital Signs Temp Pulse Resp BP Pulse Ox 36.6 C 60 16 137/92 H 98 10/16/23 07:14 10/16/23 07:14 10/16/23 07:14 10/16/23 07:14 10/16/23 07:14 Lab Results Blood Type / Crossmatch: No Data to Display Complete Blood Count: No Data to Display Complete Metabolic Panel: No Data to Display Liver Function Panel: No Data to Display Coagulation Panel: No Data to Display Cardiac Panel: No Data to Display Arterial Blood Gas: No Data to Display Venous Blood Gas: No Data to Display Pancreas Panel: No Data to Display Thyroid Panel: No Data to Display Infectious Disease: No Data to Display Blood Cultures: No Data to Display Toxicology Panel: No Data to Display Imaging and Studies Imaging and Studies Study information below may be from another EMR and interpreted by another provider. Please see original notes in EMR for more complete details. EKG Summary: Conclusion Atrial fibrillation...V-rate 78-135, irreg A-activity 09/17/22 Echocardiogram Summary: Conclusion Normal left ventricular wall thickness and chamber size. Ejection fraction is 60%. Wall motion is normal Normal right ventricular size and systolic function The left atrium is mildly dilated. The right atrium is moderately dilated Aortic valve is trileaflet without stenosis or regurgitation Normal mitral valve with mild regurgitation Normal tricuspid valve with moderate regurgitation. Estimated right ventricular systolic pressure is 23 mmHg 12/20/22 Anesthesia Assessment and Plan Anesthesia History Personal History: No History of Anesthesia Complications Family History: No Family History of Anesthesia Complications Exercise Tolerance Exercise Tolerance: Metabolic Equivalents>4 Pertinent Negatives Pertinent Negatives: No Symptoms of GERD, No Major Cardiovascular Symptoms or Complaints, No Major Pulmonary Symptoms or Complaints and No History of CVA/TIA Cardiac & Pulmonary Exam Cardiac Exam: Normal S1/S2 Heart Sounds Pulmonary Exam: Clear Bilateral Breath Sounds Cardiac and Pulmonary Comment:: BLANCA, A fib hx Implantable Cardiac Device Does patient have a Pacemaker or an ICD?: No Airway Exam Known Difficult Airway: No Mallampati Class: 2 Mouth Opening: Normal (> 3cm) Thyromental Distance: Greater than 3 cm Neck Range of Motion: Full ROM Neck Circumference: Normal Teeth Condition: Normal Dentition ASA Classification ASA Score: ASA 2 Emergency Case?: No NPO Status NPO Status: NPO Clears >2 hours, Solids >8 hours Anesthesia Plan Resuscitation Status: Full Code Anesthesia Technique: General Anesthesia Airway Planned: Natural Airway Monitors Used: Standard Monitors Preoperative Comments:: Last colonoscopy 12 yrs ago with hyperplastic polyp
[2023-10-16 08:06] VITALS: BMI 28.2
--- NOTE | 2023-10-16 08:28 | BOWEL_PTH ---
PATIENT: Jaden Daniel LOC: [facility] U#:[id number] AGE/SX: 63/M ROOM: RE10/16/[address]: Scott Burt MD : 1960 BED: DIS: 10/16/2023 SPEC #: [id number] RECD: 10/16/23 12:40 STATUS: LEFTY RE #: [id number] ANABELLA: 10/16/23 08:[address]: Scott Burt DEPT: Surgical Specimen RECD BY: Myra Boggs ENTERED: 10/16/23 12:42 SP TYPE: Bowel OTHR DR: Fermin Louis Tissues: 1 - BIOPSY BOWEL Procedures: GROSS AND MICRO LEVEL 4 Comments: [id number]
[2023-10-16 08:36] VITALS: BP 120/66; PULSE 61; RESP 18; TEMP 36.6; O2SAT 96
--- NOTE | 2023-10-16 08:51 | W.ANESPOSTOP ---
Postoperative Evaluation Date, Time and Location Date Performed: 10/16/23 Time Performed: 08:48 Patient Location: Day Surgery Unit Vital Signs Most Recent Imported Vital Signs: Most Recent Vital Signs Temp Pulse Resp BP Pulse Ox 36.6 C 61 18 120/66 96 10/16/23 08:36 10/16/23 08:36 10/16/23 08:36 10/16/23 08:36 10/16/23 08:36 Pain Score Most Recent Pain Score: Most Recent Pain Score Pain Level 0 10/16/23 08:36 Assessment Mental Status: Awake (Alert & Oriented to Patient Baseline) Airway and Respiratory Function: Patent airway with normal (patient baseline) respiratory exam Cardiovascular Function: Hemodynamically Stable Hydration Status: Adequately Hydrated Nausea & Vomiting: No Nausea or Vomiting Pain: Pt. Denies Any Pain Peripheral Nerve Block: Patient did not receive a nerve block
[2023-10-16 09:05] VITALS: BP 160/92; PULSE 54; RESP 16; TEMP 36.5; O2SAT 97
== END 2023-10-16 07:01 | disposition home or self-care (01) ==
LOC: SUR 07:01
PROVIDERS: PCP Family Medicine; Visit Provider Surgery
PROC: 0DJD8ZZ Inspection of Lower Intestinal Tract, Via Natural or Artificial Opening Endoscopic (ICD-10-PCS; CPT 45378; principal; 2023-10-16 08:15)
DX: Z12.11 Encounter for screening for malignant neoplasm of colon (principal); D12.5 Benign neoplasm of sigmoid colon; Z86.010 Personal history of colon polyps
CPT/HCPCS: 45380; 88305; J2001; J2704

== ENCOUNTER 2024-03-26 11:51 | Outpatient (CLI) | payer MEDICARE, SELFPAY ==
--- NOTE | 2024-03-26 11:00 | DI.RAD_ITS ---
Exam(s) XR KNEE RT 3V AP,LAT,CARLOS EXAM: XR KNEE RT 3V AP,LAT,CARLOS CLINICAL HISTORY: RIGHT KNEE SWELLING. TECHNIQUE: 2D digital imaging was performed of the right knee. Three views obtained. Merchant, AP an d lateral views were obtained. COMPARISON: There are no priors for comparison. FINDINGS: BONES: No acute fracture is present. No bony destructive lesion is seen. JOINTS: There are mild degenerative changes seen in the knee. There is a small joint effusion. SOFT TISSUE: Marked soft tissue swelling is seen anterior to the patella. There is a collection of c alcifications seen posterior to the proximal tibia. These do not appear to represent acute fractures . IMPRESSION: 1. No acute fracture or dislocation. 2. Marked soft tissue swelling anterior to the patella. No soft tissue gas or radiopaque foreign bod y is identified in this region. DATA REPOSITORY: RADIATION DOSE DELIVERED:
== END 2024-03-26 11:52 | disposition home or self-care (01) ==
LOC: DIORS 13:13
PROVIDERS: PCP Family Medicine; Referring Provider Family Medicine; Visit Provider Student in an Organized Health Care Education/Training Program
DX: M70.41 Prepatellar bursitis, right knee
CPT/HCPCS: 20610; 73562; 99213

== ENCOUNTER → 2024-05-15 13:08 | Outpatient (BNVA) | payer MEDICARE, SELFPAY | PROVIDERS: PCP Family Medicine; Referring Provider Family Medicine; Visit Provider Student in an Organized Health Care Education/Training Program | DX: M70.41 Prepatellar bursitis, right knee (principal) | CPT/HCPCS: 99213 ==

== ENCOUNTER 2024-08-13 09:35 | Outpatient (REF) | payer MEDICARE, SELFPAY ==
[2024-08-13 15:42] LABS: ALT 24 U/L (16-63); AST 18 U/L (15-37); Albumin 3.7 g/dL (3.4-5.0); Alkaline Phosphatase 77 U/L (46-116); Anion Gap 7.8 mmol/L (3-11); BUN 15 mg/dL (7-18); Bilirubin, Total 0.37 mg/dL (0.2-1.0); CO2 30.2 mmol/L (21.0-32.0); CREATININE 0.9 mg/dL (0.70-1.30); Calcium 9.2 mg/dL (8.5-10.1); Calculated LDL 216 mg/dL (<100); Chloride 106 mmol/L (98-107); Cholesterol 281 mg/dL (<200); Estimated GFR 94.78 (mL/min/1.73m2); Glucose 98 mg/dL (74-106); HDL Cholesterol 51 mg/dL (40-60); Potassium 4.1 mmol/L (3.5-5.1); Sodium 144 mmol/L (136-145); Total Protein 6.6 g/dL (6.4-8.2); Triglyceride 73 mg/dL (<150)
== END 2024-08-13 09:36 | disposition home or self-care (01) ==
LOC: NCHCN 09:35
PROVIDERS: PCP Family Medicine; Visit Provider Family Medicine
DX: Z00.00 Encounter for general adult medical examination without abnormal findings (principal)
CPT/HCPCS: 80053; 80061

== ENCOUNTER 2024-09-23 12:31 | Outpatient (REF) | payer MEDICARE, SELFPAY ==
[2024-09-23 15:10] LABS: ALT 26 U/L (16-63); AST 18 U/L (15-37)
== END 2024-09-23 12:32 | disposition home or self-care (01) ==
LOC: NCHCN 12:31
PROVIDERS: PCP Family Medicine; Visit Provider Family Medicine
DX: E78.5 Hyperlipidemia, unspecified (principal)
CPT/HCPCS: 84450; 84460

== ENCOUNTER → 2024-10-10 08:03 | Outpatient (BNVA) | payer MEDICARE, SELFPAY | PROVIDERS: PCP Family Medicine; Referring Provider Family Medicine; Visit Provider Podiatrist | DX: B07.0 Plantar wart (principal); M79.671 Pain in right foot; M79.672 Pain in left foot | CPT/HCPCS: 17110; 99214 ==

== ENCOUNTER 2025-01-04 11:15 | Emergency (ER) | payer MEDICARE, SELFPAY ==
--- NOTE | 2025-01-04 11:15 | RT.EKG_ITS ---
APPROVED REPORT Exam: Resting ECG Reason for Exam: afib Patient Location: E HR:109 bpm ECG Measurements Heart Rate 109 AXIS WA [id number] P [id number] QRSd 99 QRS 92 QT 342 T 38 QTc 462 Conclusion Atrial fibrillation...? atrial activity Right axis deviation...QRS axis ( 91,269) Consider anteroseptal infarct...Q >30mS, dimin R, V1-V2
[2025-01-04 11:17] VITALS: BP 135/91; PULSE 117; RESP 22; O2SAT 99
[2025-01-04 11:46] LABS: Abs Immature Grans 0.03 10^3/uL (0.0-0.06); Absolute Basophil Count 0.03 10^3/uL (0.0-0.2); Absolute Eosinophil Count 0.16 10^3/uL (0.0-0.7); Absolute Lymphocyte Count 4.04 10^3/uL (1.2-3.4); Absolute Monocyte Count 0.62 10^3/uL (0.1-0.8); Absolute Neutrophil Count 5.01 10^3/uL (1.2-6.7); Basophils % 0.3 %; Eosinophils % 1.6 %; HCT 51.8 % (40.0-50.0); HGB 17.1 g/dL (13.5-17.5); Immature Grans % 0.3 %; Lymphocytes % 40.8 %; MCH 29.3 pg (27.0-33.0); MCV 89 fL (80-95); MPV 9.2 fL (8.0-11.0); Monocytes % 6.3 %; Neutrophils % 50.7 %; Platelet Count 276 10^3/uL (130-400); RBC 5.83 10^6/uL (4.36-5.78); RDW 12.4 % (11.8-14.1); RDW-SD 40.3 fL; WBC 9.89 10^3/uL (4.4-10.8)
[2025-01-04 12:11] LABS: ALT 13 U/L (16-63); AST 14 U/L (15-37); Albumin 3.8 g/dL (3.4-5.0); Alkaline Phosphatase 87 U/L (46-116); Anion Gap 4.1 mmol/L (3-11); BUN 11 mg/dL (7-18); Bilirubin, Total 0.6 mg/dL (0.2-1.0); CO2 31.9 mmol/L (21.0-32.0); CREATININE 1.1 mg/dL (0.70-1.30); Calcium 9.1 mg/dL (8.5-10.1); Chloride 103 mmol/L (98-107); Estimated GFR 74.04 (mL/min/1.73m2); Glucose 136 mg/dL (74-106); Magnesium 1.9 mg/dL (1.8-2.4); Potassium 3.5 mmol/L (3.5-5.1); Sodium 139 mmol/L (136-145); TSH (W/Ref FT4) 1.35 uIU/mL (0.36-3.74); Total Protein 7.2 g/dL (6.4-8.2); Troponin I 8 ng/L (<or=76)
[2025-01-04 12:52] LABS: Troponin I 9 ng/L (<or=76)
--- NOTE | 2025-01-04 12:56 | ED.GENADUL_ITS ---
Discharge Plan Disposition Patient Disposition: Home Condition: Stable Discharge Details Clinical Impression: Atrial fibrillation Primary Care Provider: Fermin Louis ED Provider: Adelfo Lane Home Meds and New Rx's Prescriptions: New rivaroxaban 20 mg tablet 20 mg PO DAILY Qty: 30 0RF Rx Instructions: must administer with evening meal metoprolol succinate 50 mg tablet extended release 24 hr 50 mg PO DAILY Qty: 30 0RF Discontinued metoprolol tartrate 25 mg tablet 25 mg PO BID PRN aspirin [Aspir-81] 81 MG tablet,delayed release (DR/EC) 81 mg PO DAILY Discharge Instructions Instructions: Atrial Fibrillation (DC) Additional Instructions: Please follow-up with your primary care physician and fire alarm technician. Call to schedule an appointment to be seen in follow-up next week. Please take medications as prescribed. You are being started on a blood thinner. Please take precautions to avoid head injury and activities that put you at risk of bleeding. Avoid alcoholic beverages and caffeinated beverages. Avoid exertional activities until cleared by your doctor. Return to the emergency department immediately for any worsening or new concerning symptoms. Referrals: Fermin Louis MD [Primary Care Provider] - Nohemy Chou MD [ [facility] STAFF PHYSICIAN] - Discharge Data Discharge Date/Time-TO BE ENTERED AT DEPARTURE: 01/04/25 14:25 HPI General Mode of arrival: ambulatory . Date/Time Provider Initiated Documentation: 01/04/25 11:20 . Limitations to Documentation: no limitations . Information obtained by: patient . HPI Narrative: HISTORY OF PRESENT ILLNESS The patient presents to the ER for evaluation of atrial fibrillation. He has a history of paroxysmal atrial fibrillation. Last night, he experienced AFib with SOB and mild dizziness after consuming 2 glasses of wine. His last AFib episode was several months ago.He occasionally consumes caffeine. He took metoprolol ([id number]) at 0730 hours, prescribed by Dr. Arita. This did help her symptoms but persisted after her nap and he decided to seek care. Patient denies associated shortness of breath. No chest pain. 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 Related Data Home Medications ?Medication ?Instructions ?Recorded ?Confirmed metoprolol succinate 50 mg 50 mg PO DAILY #30 tabs 01/04/25 tablet,extended release 24 hr rivaroxaban 20 mg tablet 20 mg PO DAILY #30 tabs 01/04/25 Previous Rx's ?Medication ?Instructions ?Recorded metoprolol succinate 50 mg 50 mg PO DAILY #30 tabs 01/04/25 tablet,extended release 24 hr rivaroxaban 20 mg tablet 20 mg PO DAILY #30 tabs 01/04/25 Allergies Allergy/AdvReac Type Severity Reaction Status Date / Time No Known Allergies Allergy Verified 01/04/25 11:22 General Stated Complaint: Palpitatns YUDELKA: 3 Review of Systems All systems reviewed & are unremarkable except as noted in HPI and below Constitutional Constitutional: Denies fever(s) Exam Const General: cooperative and no acute distress Orientation: alert and awake HENWI Mouth: moist mucous membranes Eyes Conjunctivae: normal conjunctivae Sclera: normal sclerae Resp Auscultation: clear to auscultation bilaterally, no rales, no rhonchi and no wheezes Cardio Jugular venous pressure: no JVD Rate: tachycardic Rhythm: abnormal rhythm GI Palpation: soft, not firm, no guarding, no masses, not rigid and nontender Skin General skin exam: no rashes or lesions noted Neuro General: patient alert and patient awake Extrem General: no calf tenderness and no edema Psych Appearance: grossly normal Mental Status: mental status grossly normal Course Vital Signs Vital signs: Vital Signs Pulse 117 H 01/04/25 11:17 Respiratory Rate 22 01/04/25 11:17 Blood Pressure 135/91 H 01/04/25 11:17 Pulse Oximetry 99 01/04/25 11:17 Temperature Source Tympanic 01/04/25 11:17 Pulse 117 H 01/04/25 11:17 Respiratory Rate 22 01/04/25 11:17 Blood Pressure 135/91 H 01/04/25 11:17 Blood Pressure Position Supine 01/04/25 11:17 Pulse Oximetry 99 01/04/25 11:17 Oxygen Delivery Method Room Air 01/04/25 11:17 Oxygen Flow Rate 0 01/04/25 11:17 Pain Level 0 01/04/25 11:17 Lab/Test Results Lab/Test Results: Laboratory Tests Range/Units 01/04/25 01/04/25 11:28 12:26 WBC (4.4-10.8) 10^3/uL 9.89 RBC (4.36-5.78) 10^6/uL 5.83 H Hgb (13.5-17.5) g/dL 17.1 Hct (40.0-50.0) % 51.8 H MCV (80-95) fL 89 MCH (27.0-33.0) pg 29.3 MCHC (32.0-36.0) % 33.0 RDW (11.8-14.1) % 12.4 Plt Count (130-400) 10^3/uL 276 MPV (8.0-11.0) fL 9.2 Immature Gran % % 0.3 Neutrophils % % 50.7 Lymphocytes % % 40.8 Monocytes % % 6.3 Eosinophils % % 1.6 Basophils % % 0.3 Nucleated RBC % (0.0-0.3) % 0.0 Absolute Neutrophils (1.2-6.7) 10^3/uL 5.01 Absolute Lymphocytes (1.2-3.4) 10^3/uL 4.04 H Absolute Monocytes (0.1-0.8) 10^3/uL 0.62 Absolute Eosinophils (0.0-0.7) 10^3/uL 0.16 Absolute Basophils (0.0-0.2) 10^3/uL 0.03 Sodium (136-145) mmol/L 139 Potassium (3.5-5.1) mmol/L 3.5 Chloride (98-107) mmol/L 103 Carbon Dioxide (21.0-32.0) mmol/L 31.9 Anion Gap (3-11) mmol/L 4.1 BUN (7-18) mg/dL 11 Creatinine (0.70-1.30) mg/dL 1.1 Est GFR (CKD-EPI 2020) (mL/min/1.73m2) 74.04 Glucose (74-106) mg/dL 136 H Calcium (8.5-10.1) mg/dL 9.1 Magnesium (1.8-2.4) mg/dL 1.9 Total Bilirubin (0.2-1.0) mg/dL 0.6 AST (15-37) U/L 14 L ALT (16-63) U/L 13 L Alkaline Phosphatase (46-116) U/L 87 Troponin I (<or=76) ng/L 8 9 Total Protein (6.4-8.2) g/dL 7.2 Albumin (3.4-5.0) g/dL 3.8 TSH (0.36-3.74) uIU/mL 1.35 Medical Decision Making Medical Records Medical records narrative: ASSESSMENT AND PLAN Initial Assessment: Patient presents with a history of atrial fibrillation (AFib), currently experiencing symptoms including dizziness and shortness of breath. Took metoprolol 25 mg this a.m. Heart rate currently 90-110 at rest. No chest pain or shortness of breath. Saturating well in no respiratory distress. Differential Diagnosis: - Paroxysmal AFib: Discussed potential triggers, including alcohol consumption. ED Course: - Ordered blood work for electrolyte imbalances and thyroid dysfunction. - Labs reviewed and nondiagnostic. - Patient was started on metoprolol CR 50 mg and Eliquis 5 mg. - Patient is reassessed and heart rate in the 80s to 90s while ambulating around the emergency department. Patient asymptomatic. - Plan for discharge with close outpatient follow-up. - Eliquis not covered by patient's insurance. I will prescribe Xarelto. Final Assessment: Patient's AFib is currently managed with rate-controlling medications. Electrolytes within normal limits. No thyroid dysfunction. Plan to initiate treatment with long-acting metoprolol and given CHADS2 Vasc score (Age >65 and male), will initiate treatment with apixaban. Clinical Impression: - Atrial Fibrillation Disposition: - Discharge home - Follow-Up: Plan for follow-up with cardiology and pcp. MDM Components Evaluation: - Number of Differential Diagnoses or Management Options: Alcohol-induced AFib - Amount and Complexity of Data Reviewed: Blood work for electrolyte imbalances and thyroid dysfunction. - Risk of Complication and Morbidity or Mortality: Moderate risk due to AFib and potential triggers. This document was written with the assistance of ULYSSES Shin. The patient consented to its use. Lab Data Lab results reviewed: Yes I reviewed the patient's lab results. Labs: Laboratory Tests Range/Units 01/04/25 01/04/25 11:28 12:26 WBC (4.4-10.8) 10^3/uL 9.89 RBC (4.36-5.78) 10^6/uL 5.83 H Hgb (13.5-17.5) g/dL 17.1 Hct (40.0-50.0) % 51.8 H MCV (80-95) fL 89 MCH (27.0-33.0) pg 29.3 MCHC (32.0-36.0) % 33.0 RDW (11.8-14.1) % 12.4 Plt Count (130-400) 10^3/uL 276 MPV (8.0-11.0) fL 9.2 Immature Gran % % 0.3 Neutrophils % % 50.7 Lymphocytes % % 40.8 Monocytes % % 6.3 Eosinophils % % 1.6 Basophils % % 0.3 Nucleated RBC % (0.0-0.3) % 0.0 Absolute Neutrophils (1.2-6.7) 10^3/uL 5.01 Absolute Lymphocytes (1.2-3.4) 10^3/uL 4.04 H Absolute Monocytes (0.1-0.8) 10^3/uL 0.62 Absolute Eosinophils (0.0-0.7) 10^3/uL 0.16 Absolute Basophils (0.0-0.2) 10^3/uL 0.03 Sodium (136-145) mmol/L 139 Potassium (3.5-5.1) mmol/L 3.5 Chloride (98-107) mmol/L 103 Carbon Dioxide (21.0-32.0) mmol/L 31.9 Anion Gap (3-11) mmol/L 4.1 BUN (7-18) mg/dL 11 Creatinine (0.70-1.30) mg/dL 1.1 Est GFR (CKD-EPI 2020) (mL/min/1.73m2) 74.04 Glucose (74-106) mg/dL 136 H Calcium (8.5-10.1) mg/dL 9.1 Magnesium (1.8-2.4) mg/dL 1.9 Total Bilirubin (0.2-1.0) mg/dL 0.6 AST (15-37) U/L 14 L ALT (16-63) U/L 13 L Alkaline Phosphatase (46-116) U/L 87 Troponin I (<or=76) ng/L 8 9 Total Protein (6.4-8.2) g/dL 7.2 Albumin (3.4-5.0) g/dL 3.8 TSH (0.36-3.74) uIU/mL 1.35 Quality:SDOH Health Related Social Needs: No Data to Display PFSH All Active Problems (Updated 01/04/25 @ 13:[address] MD) Atrial fibrillation (Chronic) Pain in both feet (Acute) Plantar verruca (Acute) Prepatellar bursitis, right knee (Acute) Sleep apnea (Acute) Screening for colon cancer (Acute) Right rotator cuff tear (Acute) Hill Sachs deformity, right (Acute) Displaced fracture of glenoid cavity of right scapula (Acute) Instability of right shoulder joint (Acute) S/P bony Bankart stabilization procedure on 02/22/2019. 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 ARITA FOR HEART WORK UP Actinic keratoses Knee pain, bilateral Skin nodule Paresthesia of both hands Surgical History H/O arthroscopy of shoulder Right shoulder. History of colonoscopy (~10/2023) path sent H/O knee surgery Pt. denies Social History Smoking/Tobacco Use Status: Never Smoking risk assessment performed?: Yes Alcohol Intake: current Alcohol Intake frequency: a few times a month Alcohol type: beer Drug use: Rarely Substance use type: marijuana Housing: house Current gender identity: male Do you feel safe at home: Yes Do you feel safe in your relationship?: Yes PAWSS Have you Been Recently Intoxicated or Drunk Within the Last 30 days?: No Have you Ever Experienced Previous Episodes of Alcohol Withdrawal?: No Have you ever Experienced Withdrawal Seizures?: No Have you ever Experienced Delirium Tremens(DT)s?: No Have you ever undergone Alcohol Rehabilitation Treatment (i.e, inpt ot outpatient treatment programs)?: No Have you ever Experienced Blackouts?: No Have you ever Combined Alcohol with other Downers within the last 90 days?: No Have you ever Combined Alcohol with any other Substance of Abuse during the last 90 days?: No Result: 0
[2025-01-04] MEDS: Metoprolol CR 50 MG TABCR PO (13:21)
[2025-01-04] MEDS: Apixaban 5 MG TAB PO (13:21)
--- NOTE | 2025-01-04 14:06 | NUR.NOTE ---
Nursing Note: patient walked aorund unit with this RN while ambulating Pulse: 80 SpO2 97% RA pt denied SOB while ambulating
[2025-01-04 14:18] VITALS: BP 112/66; PULSE 78; RESP 16; O2SAT 97
== END 2025-01-04 14:25 | disposition home or self-care (01) ==
PROVIDERS: Emergency Provider Student in an Organized Health Care Education/Training Program; PCP Family Medicine
DX: I48.0 Paroxysmal atrial fibrillation (principal); E78.5 Hyperlipidemia, unspecified; Z79.82 Long term (current) use of aspirin
CPT/HCPCS: 36415; 80053; 93005; 99284; 83735; 84443; 84484; 85025; 93010

== ENCOUNTER 2025-01-13 08:48 | Outpatient (CLI) | payer MEDICARE, SELFPAY ==
--- NOTE | 2025-01-13 08:45 | RT.EKG_ITS ---
APPROVED REPORT Exam: Resting ECG Reason for Exam: PAF Patient Location: O HR:56 bpm ECG Measurements Heart Rate 56 AXIS IA 155 P 60 QRSd 108 QRS 17 QT 438 T 34 QTc 423 Conclusion Sinus rhythm...normal P axis, V-rate 50- 99
== END 2025-01-13 08:49 | disposition home or self-care (01) ==
LOC: DI.CARD 08:50
PROVIDERS: PCP Family Medicine; Visit Provider Registered Nurse
DX: I48.0 Paroxysmal atrial fibrillation
CPT/HCPCS: 93010

== ENCOUNTER → 2025-01-13 13:42 | Outpatient (BNVA) | payer MEDICARE, SELFPAY | PROVIDERS: PCP Family Medicine; Referring Provider Family Medicine; Visit Provider Registered Nurse | DX: I48.91 Unspecified atrial fibrillation (principal) | CPT/HCPCS: 99215; 93005; 20610 ==

== ENCOUNTER 2025-01-23 07:55 | Emergency (ER) | payer MEDICARE, SELFPAY ==
[2025-01-23] VITALS (31 sets, daily range): BP systolic 103–140; BP diastolic 72–102; PULSE 58–109; RESP 9–22; TEMP 36.6; O2SAT 94–98
--- NOTE | 2025-01-23 07:45 | RT.EKG_ITS ---
APPROVED REPORT Exam: Resting ECG Reason for Exam: afib Patient Location: E HR:110 bpm ECG Measurements Heart Rate 110 AXIS AL [id number] P [id number] QRSd 104 QRS 57 QT 351 T 17 QTc 475 Conclusion Atrial fibrillation...V-rate 81-144, irreg A-activity
[2025-01-23 08:24] LABS: Abs Immature Grans 0.02 10^3/uL (0.0-0.06); Absolute Basophil Count 0.02 10^3/uL (0.0-0.2); Absolute Eosinophil Count 0.08 10^3/uL (0.0-0.7); Absolute Lymphocyte Count 1.86 10^3/uL (1.2-3.4); Absolute Monocyte Count 0.43 10^3/uL (0.1-0.8); Basophils % 0.3 %; Eosinophils % 1.2 %; HCT 47.9 % (40.0-50.0); HGB 15.5 g/dL (13.5-17.5); Immature Grans % 0.3 %; Lymphocytes % 26.9 %; MCH 28.5 pg (27.0-33.0); MCHC 32.4 % (32.0-36.0); MCV 88 fL (80-95); MPV 9.5 fL (8.0-11.0); Monocytes % 6.2 %; Neutrophils % 65.1 %; Platelet Count 238 10^3/uL (130-400); RBC 5.44 10^6/uL (4.36-5.78); RDW 12.6 % (11.8-14.1); RDW-SD 40.5 fL; WBC 6.91 10^3/uL (4.4-10.8)
[2025-01-23] MEDS: Metoprolol 25 MG TAB PO ×2 (08:41→10:19)
[2025-01-23] MEDS: Normal Saline 500 ML IV (08:41)
[2025-01-23 08:48] LABS: ALT 23 U/L (16-63); AST 13 U/L (15-37); Albumin 3.4 g/dL (3.4-5.0); Alkaline Phosphatase 72 U/L (46-116); Anion Gap 8.3 mmol/L (3-11); BUN 12 mg/dL (7-18); Bilirubin, Total 0.3 mg/dL (0.2-1.0); CO2 27.7 mmol/L (21.0-32.0); Chloride 108 mmol/L (98-107); Estimated GFR 83.01 (mL/min/1.73m2); Glucose 133 mg/dL (74-106); Magnesium 1.8 mg/dL (1.8-2.4); NT-proBNP 753 pg/mL (<300); Potassium 3.7 mmol/L (3.5-5.1); Sodium 144 mmol/L (136-145); Total Protein 6.5 g/dL (6.4-8.2); Troponin I 12 ng/L (<or=76)
[2025-01-23 08:53] LABS: TSH (W/Ref FT4) 1.95 uIU/mL (0.36-3.74)
[2025-01-23 08:58] LABS: Lab Add On Test DONE
[2025-01-23 09:23] LABS: D-Dimer 288 ng/mlFEU (<500)
--- NOTE | 2025-01-23 09:30 | DI.RAD_ITS ---
Exam(s) XR CHEST 2V PA LATERAL EXAM: XR CHEST 2V PA LATERAL CLINICAL HISTORY: shortness of breath. TECHNIQUE: 2D digital imaging was performed. COMPARISON: CR,XR XR PORTABLE CHEST AP from 09/17/2022 FINDINGS: 2 views: Heart size is normal. The mediastinum is not widened. Lungs are clear. No infiltrates nor pleural effusions. Small benign granuloma in left upper lobe is unchanged. IMPRESSION: No acute pulmonary findings. DATA REPOSITORY: RADIATION DOSE DELIVERED:
[2025-01-23 09:38] LABS: Troponin I 12 ng/L (<or=76)
--- NOTE | 2025-01-23 13:55 | ED.GENADUL_ITS ---
Discharge Plan Disposition Patient Disposition: Home Condition: Stable Discharge Details Clinical Impression: Atrial fibrillation Primary Care Provider: Fermin Louis ED Provider: Myra Apple Home Meds and New Rx's Prescriptions: New metoprolol tartrate 25 mg tablet 25 mg PO BID Qty: 60 0RF Continued metoprolol tartrate 25 mg tablet 25 mg PO PRN PRN Xarelto 20 mg tablet 20 mg PO DAILY Patient Comments: TAKE ONE TABLET BY MOUTH EVERY DAY WITH EVENING MEAL Discharge Instructions Instructions: Atrial Fibrillation (DC) Additional Instructions: You are in rate controlled atrial fibrillation and as your symptoms are typically paroxysmal, you are likely more symptomatic when you exert yourself Get some rest drink regular fluids and make sure you are having regular meals you may take an additional dose of your metoprolol 25 mg tonight if your heart rate is still greater than 80 and your blood pressures higher than 110 systolic or the higher number I would resume your metoprolol 25 mg twice daily tomorrow although if you are still in atrial fibrillation at that time you could take 25 mg in the morning and 50 mg at night as long as your blood pressure and pulse can accommodate this You may also call cardiology tomorrow It sounds like a referral to Dr. Cameron has been placed but you can confirm with cardiology clinic to be sure this is happened may also follow-up with your primary care physician tomorrow Please return immediately should you have worsening symptoms and make sure you continue on your Xarelto Referrals: Fermin Louis MD [Primary Care Provider, Medicine] - 2 days Sebastián Cameron MD [ CONSULTING PHYSICIAN, Cardiology] - 1 day Discharge Data Discharge Date/Time-TO BE ENTERED AT DEPARTURE: 01/23/25 11:10 HPI General Date/Time Provider Initiated Documentation: 01/23/25 08:07 . HPI Narrative: 64-year-old male with atrial fibrillation, on metoprolol and Eliquis, reports AFib onset last evening at 1900 hours. Took 225 mg metoprolol, symptoms persisted. On Eliquis since 01/14/2025. Had a holiday from metoprolol and Xarelto 1 week prior due to fatigue. No history of coagulopathy, stroke, or pulmonary embolism. No chest pain, but lightheaded and SOB on exertion. No calf pain or swelling. Related Data Home Medications ?Medication ?Instructions ?Recorded ?Confirmed metoprolol tartrate 25 mg tablet 25 mg PO PRN PRN 10/0801/23/25 metoprolol tartrate 25 mg tablet 25 mg PO BID #60 tabs 01/23/25 rivaroxaban 20 mg tablet (Xarelto) 20 mg PO DAILY 01/1201/23/25 Previous Rx's ?Medication ?Instructions ?Recorded metoprolol tartrate 25 mg tablet 25 mg PO BID #60 tabs 01/23/25 Allergies Allergy/AdvReac Type Severity Reaction Status Date / Time No Known Allergies Allergy Verified 01/23/25 08:26 General Stated Complaint: Arrhythmia YUDELKA: 3 Exam Narrative Exam Narrative: General Appearance: Alert and oriented. Vital signs: Within normal limits. HEENT: Within normal limits. Respiratory: Lungs clear to auscultation, no respiratory distress. Cardiovascular: Heart regularly irregular, no murmur. Neurological: Nonfocal, alert and oriented x4. Course Vital Signs Vital signs: Vital Signs Temperature 36.6 C 01/23/25 07:58 Pulse 97 H 01/23/25 07:58 Respiratory Rate 18 01/23/25 07:58 Blood Pressure 111/79 01/23/25 07:58 Pulse Oximetry 96 01/23/25 07:58 Temperature 36.6 C 01/23/25 07:58 Temperature Source Oral 01/23/25 07:58 Pulse 75 01/23/25 11:01 Pulse 80 01/23/25 11:01 Respiratory Rate 13 01/23/25 11:01 Blood Pressure 122/89 01/23/25 11:01 Blood Pressure Mean 100 01/23/25 11:01 Pulse Oximetry 95 01/23/25 11:01 Lab/Test Results Lab/Test Results: Laboratory Tests Range/Units 01/23/25 01/23/25 01/23/25 08:10 09:03 11:09 WBC (4.4-10.8) 10^3/uL 6.91 RBC (4.36-5.78) 10^6/uL 5.44 Hgb (13.5-17.5) g/dL 15.5 Hct (40.0-50.0) % 47.9 MCV (80-95) fL 88 MCH (27.0-33.0) pg 28.5 MCHC (32.0-36.0) % 32.4 RDW (11.8-14.1) % 12.6 Plt Count (130-400) 10^3/uL 238 MPV (8.0-11.0) fL 9.5 Immature Gran % % 0.3 Neutrophils % % 65.1 Lymphocytes % % 26.9 Monocytes % % 6.2 Eosinophils % % 1.2 Basophils % % 0.3 Nucleated RBC % (0.0-0.3) % 0.0 Absolute Neutrophils (1.2-6.7) 10^3/uL 4.50 Absolute Lymphocytes (1.2-3.4) 10^3/uL 1.86 Absolute Monocytes (0.1-0.8) 10^3/uL 0.43 Absolute Eosinophils (0.0-0.7) 10^3/uL 0.08 Absolute Basophils (0.0-0.2) 10^3/uL 0.02 D-Dimer (<500) ng/mlFEU 288 Sodium (136-145) mmol/L 144 Potassium (3.5-5.1) mmol/L 3.7 Chloride (98-107) mmol/L 108 H Carbon Dioxide (21.0-32.0) mmol/L 27.7 Anion Gap (3-11) mmol/L 8.3 BUN (7-18) mg/dL 12 Creatinine (0.70-1.30) mg/dL 1.0 Est GFR (CKD-EPI 2020) (mL/min/1.73m2) 83.01 Glucose (74-106) mg/dL 133 H Calcium (8.5-10.1) mg/dL 9.0 Magnesium (1.8-2.4) mg/dL 1.8 Total Bilirubin (0.2-1.0) mg/dL 0.3 AST (15-37) U/L 13 L ALT (16-63) U/L 23 Alkaline Phosphatase (46-116) U/L 72 Troponin I (<or=76) ng/L 12 12 Cancelled NT-Pro-B Natriuret Pep (<300) pg/mL 753 H Total Protein (6.4-8.2) g/dL 6.5 Albumin (3.4-5.0) g/dL 3.4 TSH (0.36-3.74) uIU/mL 1.95 Add-On Test Request DONE Medical Decision Making Chest x-ray per radiology interpretation review does not show acute abnormality, 2 negative troponins, remainder of diagnostic labs within normal limit Initial Assessment: 64-year-old male with a history of atrial fibrillation on metoprolol and Eliquis presents with report of going into atrial fibrillation last evening after a long flight. Symptoms started abruptly at 7 PM. Took 225 mg metoprolol, remained symptomatic. Denies history of coagulopathy, stroke, or PE. Denies current chest pain, calf pain, or swelling. Feels lightheaded and short of breath with exertion. Alert and oriented, regularly irregular heart rhythm, clear lungs, no respiratory distress, no murmur, nonfocal neurological exam, ambulatory with steady gait, tachycardia up to 120s with exertion. ED Course: - Ordered labs, EKG, and imaging due to recent flight. - Given 1 L normal saline and 50 mg metoprolol tartrate. - HR 75, BP stable. - Ambulatory with steady gait, remains in AFib. - Synchronized cardioversion discussed, patient prefers to avoid. - Referred to Dr. Cameron for ablation, encouraged to keep appointment. Final Assessment: Patient presented with atrial fibrillation after a long flight. Initial treatment included metoprolol and normal saline. Patient remains in AFib but is rate controlled and stable. Synchronized cardioversion was discussed but patient prefers to avoid. Follow-up with Dr. Cameron for ablation is recommended. Clinical Impression: - Atrial Fibrillation Disposition: - Discharge - Follow-Up: Referral to Dr. Cameron for ablation, encouraged to keep appointment. MDM Components Evaluation: - Number of Differential Diagnoses or Management Options: Atrial Fibrillation - Amount and Complexity of Data Reviewed: Labs, EKG, imaging - Risk of Complication and Morbidity or Mortality: Risk of stroke or PE due to AFib, managed with rate control and follow-up for ablation. [facility] All Active Problems (Updated 01/23/25 @ 10:41 by DANIAL Torres) Atrial fibrillation (Chronic) Atrial fibrillation (Chronic) Pain in both feet (Acute) Plantar verruca (Acute) Prepatellar bursitis, right knee (Acute) Sleep apnea (Acute) 01/13/25 uses CPAP RH Screening for colon cancer (Acute) Right rotator cuff tear (Acute) Hill Sachs deformity, right (Acute) Displaced fracture of glenoid cavity of right scapula (Acute) Instability of right shoulder joint (Acute) S/P bony Bankart stabilization procedure on 02/22/2019. This also included a rotator cuff repair Carpal tunnel syndrome of left wrist (Acute) Lesion of left ulnar nerve (Acute) Medical History Paresthesia of hand Snoring Plantar wart, right foot Neck pain Ulnar nerve entrapment syndrome Lipoma of axilla Lipoma of back Hyperlipemia Paroxysmal atrial fibrillation PT. STATES HE HASN'T SEEN [employer] IN 2 YEARS, DOES SEE DR. OVIEDO FOR HEART WORK UP Actinic keratoses Knee pain, bilateral Skin nodule Paresthesia of both hands Surgical History H/O arthroscopy of shoulder Right shoulder. History of colonoscopy (~10/2023) path sent H/O knee surgery Pt. denies Social History Smoking/Tobacco Use Status: Never Smoking risk assessment performed?: Yes Alcohol Intake: current Alcohol Intake frequency: a few times a month Alcohol type: beer Drug use: Rarely Substance use type: marijuana Housing: house Current gender identity: male Do you feel safe at home: Yes Do you feel safe in your relationship?: Yes PAWSS Have you Been Recently Intoxicated or Drunk Within the Last 30 days?: No Have you Ever Experienced Previous Episodes of Alcohol Withdrawal?: No Have you ever Experienced Withdrawal Seizures?: No Have you ever Experienced Delirium Tremens(DT)s?: No Have you ever undergone Alcohol Rehabilitation Treatment (i.e, inpt ot outpatient treatment programs)?: No Have you ever Experienced Blackouts?: No Have you ever Combined Alcohol with other Downers within the last 90 days?: No Have you ever Combined Alcohol with any other Substance of Abuse during the last 90 days?: No Positive Blood Alcohol level on Presentation? [PCS.BAL]: No Evidence of Increased Autonomic Activity (i.e. HR>120, tremor, sweating, agitation, nausea)?: No Result: 0
== END 2025-01-23 11:10 | disposition home or self-care (01) ==
PROVIDERS: Emergency Provider Physician Assistant; PCP Family Medicine
DX: I48.0 Paroxysmal atrial fibrillation (principal); Z79.01 Long term (current) use of anticoagulants
CPT/HCPCS: 36415; 80053; 93005; 96360; 99284; 71046; 83735; 83880; 84443; 84484; 85025; 85379; 93010

== ENCOUNTER → 2025-02-12 10:49 | Outpatient (BNVA) | payer MEDICARE, SELFPAY | PROVIDERS: PCP Family Medicine; Referring Provider Family Medicine; Visit Provider Internal Medicine Cardiovascular Disease | DX: I48.91 Unspecified atrial fibrillation (principal) | CPT/HCPCS: 99215 ==

== ENCOUNTER 2025-03-10 13:05 | Outpatient (REF) | payer MEDICARE, SELFPAY ==
[2025-03-10 17:01] LABS: Calculated LDL 191 mg/dL (<100); Cholesterol 254 mg/dL (<200); HDL Cholesterol 43 mg/dL (>or=40); Triglyceride 100 mg/dL (<150); Vitamin D 25 Total 22 ng/mL (30-100)
[2025-03-11 10:48] LABS: Lyme Ab w Rflx to Lyme Confirm Negative (Negative)
[2025-03-13 16:50] LABS: B. miyamotoi PCR Negative (Negative); Babesia divergens/MO-1 Negative (Negative); Ehrlichia muris eauclairensis Negative (Negative)
== END 2025-03-10 13:06 | disposition home or self-care (01) ==
LOC: NCHCN 13:05
PROVIDERS: PCP Family Medicine; Visit Provider Family Medicine
DX: E78.5 Hyperlipidemia, unspecified (principal); M79.18 Myalgia, other site
CPT/HCPCS: 80061; 82306; 87798; 86618

== ENCOUNTER 2025-07-14 08:05 | Outpatient (CLI) | payer MEDICARE, SELFPAY ==
--- NOTE | 2025-07-14 08:00 | RT.EKG_ITS ---
APPROVED REPORT Exam: Resting ECG Reason for Exam: PAF Patient Location: O HR:59 bpm ECG Measurements Heart Rate 59 AXIS LA 162 P 50 QRSd 103 QRS -6 QT 439 T 12 QTc 435 Conclusion Sinus rhythm...normal P axis, V-rate 50- 99 Probable left atrial enlargement...P >50mS, <-0.10mV V1
== END 2025-07-14 08:06 | disposition home or self-care (01) ==
LOC: DI.CARD 08:05
PROVIDERS: PCP Family Medicine; Visit Provider Registered Nurse
DX: I48.0 Paroxysmal atrial fibrillation (principal); I51.7 Cardiomegaly
CPT/HCPCS: 93010

== ENCOUNTER → 2025-07-14 10:02 | Outpatient (BNVA) | payer MEDICARE, SELFPAY | PROVIDERS: PCP Family Medicine; Referring Provider Family Medicine; Visit Provider Registered Nurse | DX: I48.0 Paroxysmal atrial fibrillation (principal); E78.5 Hyperlipidemia, unspecified; Z79.01 Long term (current) use of anticoagulants | CPT/HCPCS: 99214 ==